=== PATIENT | female | born 1950 | race Caucasian/White ===

== ENCOUNTER 2017-09-08 18:50 | Inpatient (IN) | END 2017-09-16 20:45 | DRG 493 ==

== ENCOUNTER 2017-11-03 16:19 | Emergency (ER) | END 2017-11-03 20:19 | disposition home or self-care (01) ==

== ENCOUNTER 2019-06-10 02:07 | Emergency (ER) | payer MEDICARE, OTHER ==
[~2019-06-10] VITALS: Ht 152.4 cm; Wt 70.1 kg
[~2019-06-10 02:07] MED LIST: ACET325T33 PO; ATOR40TA68 PO; DOCU-216 PO; ESOM20CA; FAMO-96 PO; HYG25 PO; LANT3I SC; LINA5TAB PO; LOSA50TA2 PO; METF500T PO; METO-319 PO; NITR100C6 PO; OXYC-431 PO; OXYC-438 PO; REPA1TAB14 PO; UDMOM PO
[2019-06-10 02:15] VITALS: Ht 152.4 cm; Wt 70.1 kg
[2019-06-10] MEDS ORDERED: LIDOCAINE/MYLANTA 40 ML BTL PO ONE (04:00)
[2019-06-10] MEDS ORDERED: FAMOTIDINE 20 MG TAB PO ONE (04:00)
[2019-06-10 04:15] VITALS: BP 140/65; PULSE 86; RESP 18
== END 2019-06-10 04:15 | disposition home or self-care (01) ==
LOC: FTE 02:07
DX: K21.9 Gastro-esophageal reflux disease without esophagitis (principal); I10 Essential (primary) hypertension; E11.9 Type 2 diabetes mellitus without complications; Z79.4 Long term (current) use of insulin
CPT/HCPCS: 93005

== ENCOUNTER 2019-06-22 04:33 | Emergency (ER) | payer MEDICARE, OTHER ==
[~2019-06-22] VITALS: Ht 152.4 cm; Wt 71.0 kg
[2019-06-22 04:41] VITALS: Ht 152.4 cm; Wt 71.0 kg
[2019-06-22] MEDS ORDERED: ONDANSETRON (ODT) 4 MG TAB ODT STA (05:57)
[2019-06-22 06:07] VITALS: BP 143/63; PULSE 82; RESP 16
== END 2019-06-22 06:18 | disposition home or self-care (01) ==
LOC: E/R 04:33
DX: I16.0 Hypertensive urgency (principal); I10 Essential (primary) hypertension; R20.2 Paresthesia of skin; E11.9 Type 2 diabetes mellitus without complications; Z79.4 Long term (current) use of insulin
CPT/HCPCS: 36415; 70450; 80048; 84484; 85025; 93005